=== PATIENT | female | born 2000 | race Caucasian/White ===

== ENCOUNTER 2020-05-19 10:37 | Emergency (ER) | payer OTHER, SELFPAY ==
[2020-05-19 10:57] VITALS: BP 130/73; PULSE 76; RESP 18; TEMP 37.1; O2SAT 99; BMI 28.3
--- NOTE | 2020-05-19 10:58 | ED.URI ---
HPI - URI/Sore Throat General Chief Complaint: General Medical Stated Complaint: covid symptoms Time Seen by Provider: 05/19/20 10:58 Source: patient and army helicopter pilot Mode of arrival: ambulatory Limitations: no limitations History of Present Illness MD elicited complaint: nasal congestion and sinus pain Onset (ago): day(s) (2) Consistency: constant Description of mucous: yellow Able to tolerate fluids by mouth: Yes Exacerbating factors: leaning forward Relieving factors: nothing Associated symptoms: chills, myalgias, headache and nasal congestion Treatments prior to arrival: none Related Data Previous Rx's Medication Instructions Recorded azithromycin See Rx Instructions .ROUTE 05/19/20 .COMPLEX #6 tab Allergies Allergy/AdvReac Type Severity Reaction Status Date / Time No Known Allergies Allergy Verified 05/19/20 10:56 [No Known Allergies*] Review of Systems Review of Systems: Constitutional : no Fever, positive Chills, positive fatigue, positive Malaise ENT/Mouth : no sore throat, positive runny nose and sinus pain Eyes: No Discharge Cardiovascular : No Chest Pain, No SOB Respiratory : No Cough, No Sputum Gastrointestinal : No Nausea, No Vomiting, No Diarrhea Genitourinary : No Dysuria, No Urinary Frequency Musculoskeletal : positive Myalgia Skin : No rash Neuro : positive mild Headache PMFSH Past Medical History Medical History No known health problems Social History Social History (Updated 05/19/20 @ 11:21 by Nora Champion DO) Smoking Status: Never smoker Advance Directives: No Advance Directives Information Provided: No Physical Exam Vital Signs: Vital Signs: Vital Signs Temp Pulse Resp BP Pulse Ox 05/19/20 10:57 98.8 F 76 18 130/73 99 Body Mass Index 28.3 Appearance: Alert. Oriented X3. No acute distress. Eyes: Pupils equal, round and reactive to light. ENT: Pharynx normal. ttp bilateral sinuses Neck: Normal inspection. Neck supple. CVS: Normal heart rate and rhythm. Pulses normal. Respiratory: No respiratory distress. Breath sounds normal. Abdomen: Soft and nontender. Skin: Skin warm and dry. Normal skin color. Normal skin turgor. Extremities: No lower extremity edema. No calf ttp Neuro: Oriented X 3. No motor deficit. No sensory deficit. MDM - URI/Sore Throat MDM Narrative Medical decision making narrative: headache nasal congestion, clear lungs, no fevers, not hypoxic - test for COVId and treat for sinusitis Discharge Plan Discharge Clinical Impression: Viral infection Sinusitis Qualifiers: Sinusitis location: frontal Chronicity: acute Recurrence: non-recurrent Qualified Code(s): J01.10 - Acute frontal sinusitis, unspecified Patient Disposition: Home, Self-Care Instructions: Sinusitis (ED), COVID-19 (Coronavirus Disease 2019) (ED) Additional Instructions: you were tested for COVID we will call you with results in 2 to 4 days, wear a mask, socially distance Prescriptions: New azithromycin 250 mg tablet See Rx Instructions .ROUTE .COMPLEX Qty: 6 RF: 0 Stand Alone Forms: Work/School Release
--- NOTE | 2020-05-19 11:17 | PC.NURSE ---
dr taylor at chairside for exam with senior product designer present
== END 2020-05-19 11:30 | disposition home or self-care (01) ==
PROVIDERS: Emergency Provider Emergency Medicine
DX: B34.9 Viral infection, unspecified (principal); Z20.828 Contact with and (suspected) exposure to other viral communicable diseases; J01.10 Acute frontal sinusitis, unspecified
CPT/HCPCS: 87635; 99283

== ENCOUNTER 2020-10-07 07:46 | Emergency (ER) | payer MEDICAID, SELFPAY ==
[2020-10-07 08:58] LABS: Influenza A PCR NEGATIVE (Negative); Influenza B PCR NEGATIVE (Negative); Resp Syncy Virus RNA Qual PCR NEGATIVE (Negative); SARS COV2 PCR INHOUSE NEGATIVE (Negative)
[2020-10-07 09:17] VITALS: BP 112/65; PULSE 73; RESP 16; TEMP 36.8; O2SAT 100; BMI 25.4
--- NOTE | 2020-10-07 10:01 | ED_ITS ---
HPI - General Adult General Chief complaint: General Medical Stated complaint: covid symptoms, 5 months Time Seen by Provider: 10/07/20 09:38 Source: patient Mode of arrival: ambulatory Limitations: no limitations History of Present Illness HPI narrative: 18-year-old female G1, P0, LMP 05/03/2020, EDC 02/07/2021, 22 weeks, 3 days who presents emergency department for evaluation of headache, sore throat, body and fatigue. The patient states that she developed symptoms last night . She states she had a gradual onset of bilateral temporal headache which she describes a pressure-like pain which is constant moderate intensity. She also states that she feels like her nose and throat are congested she does have a sore throat which is czrs-cy-tlxgdsdf in intensity and worse with swallowing. She states that her body aches and she feels fatigued. She denied chest pain, shortness of breath, cough, diarrhea, loss of sense of taste or smell. She has not noticed any swelling in her lower extremities. She denies any vaginal discharge. The patient states that she can feel movement and it appears to be normal. The patient lives with her who was well, she does not know of any COVID-19 exposures. Related Data Previous Rx's Medication Instructions Recorded azithromycin See Rx Instructions .ROUTE 05/19/20 .COMPLEX #6 tab Allergies Allergy/AdvReac Type Severity Reaction Status Date / Time No Known Allergies Allergy Verified 05/19/20 10:56 [No Known Allergies*] Review of Systems Review of Systems: Yes all other systems are reviewed and are negative PMFSH Past Medical History PMFSH Narrative: The patient denies tobacco, alcohol and drug use. She lives at home with her . Medical History No known health problems Social History Social History Smoking Status: Never smoker Advance Directives: Yes Advance Directives Information Provided: Yes Advance Directives on File: No Physical Exam Vital Signs: Vital Signs: Last Vital Signs Temp 98.2 F 10/07/20 09:17 Pulse 73 10/07/20 09:17 Resp 16 10/07/20 09:17 BP 112/65 10/07/20 09:17 Pulse Ox 100 10/07/20 09:17 Body Mass Index 25.4 Const: General: cooperative and healthy appearing Orientation/consciousness: oriented to person and oriented to place Limitations: no limitations HENMT: Head: Yes normal to inspection, Yes normocephalic and Yes atraumatic Ears: external ears normal General nose exam: Normal external nose present Face and sinus: Yes normal facial exam Mouth: Normal oral and palatal mucosa present Throat: Yes other (Slight posterior erythema, no exudates, uvula midline, tonsils normal) Eyes: Periorbital: periorbital findings normal Eyelids: Yes eyelids normal Conjunctivae: conjunctivae normal Sclerae: sclerae normal Corneas: corneas normal Pupils: Equal, round and reactive pupils present Direct Ophthalmoscopy: normal light reflex Neck: Neck: Yes full ROM, Yes no lymphadenopathy, Yes no meningeal signs, Yes trachea midline and Yes supple Chest: Chest palpation & inspection: normal inspection of the chest and normal palpation of entire chest wall Resp: Effort & Inspection: normal respiratory effort and able to speak in complete sentences Auscultation: clear to auscultation bilaterally Cardio: Rate: regular rate Rhythm: regular rhythm Heart sounds: S1 normal heart sound present, S2 normal heart sound present and no murmurs GI: Inspection: Yes normal to inspection Palpation (GI): Soft to palpation, nontender, no guarding, not rigid, No hepatosplenomegaly present and Other GI palpation findings present (Gravid uterus, nontender) : General: Yes no CVA tenderness Back/Spine/Pelvis: Back: no CVA tenderness Cervical Spine: normal cervical lordosis Thoracic/Lumbar Spine: thoracic and lumbar spine normal to inspe ction Skin: Lesions: no lesions Rashes: no rashes Wounds: no wounds Neuro: General: oriented to person, oriented to place and no meningeal signs Cranial nerves: Yes CN's II-XII intact bilaterally and Yes Equal, round and reactive pupils present Cognition (Neuro): normal cognition Motor exam (neuro): 5/5 motor strength present throughout Extrem: General: Yes normal to inspection, Yes full ROM and Yes other (No edema or swelling) Psych: Appearance: well kempt Mental Status: mental status grossly normal Speech and movement: Normal speech and movement present Affect: normal affect Attitude: cooperative Thought process: Normal thought process present Thought content: Normal thought content present Course Course Course Narrative: 20-year-old female G1, P0 , 22 weeks , who presents with symptom consistent with a viral illness. Physical examination did reveal some posterior erythema but no other findings. The patient had no abdominal tenderness and no edema noted. The patient most likely has a viral illness. I do not think that she has any evidence for preeclampsia or early labor. The patient's COVID-19, influenza and RSV tests were all negative. This is reassuring, but I did discuss false negatives with the patient. Rapid strep will be tested and I will contact the patient with this finding. Patient was treated with Tylenol 975 mg orally. She was advised to take Tylenol and to return to the emergency department if her symptoms get worse or if she took the new symptoms that were concerning to her. heart tones were 172 which is acceptable. 1205: Rapid strep test was negative, cultures pending. I did discuss this result with the patient over the phone- . Medical Decision Making Lab Data Labs: Lab Results 10/07/20 Range/Units 08:12 Coronavirus (PCR) NEGATIVE (Negative) Influenza Type A (PCR) NEGATIVE (Negative) Influenza Type B (PCR) NEGATIVE (Negative) RSV RNA Qual (PCR) NEGATIVE (Negative) Discharge Plan Discharge Clinical Impression: Pharyngitis with viral syndrome Patient Disposition: Home, Self-Care Instructions: Viral Syndrome (ED) Additional Instructions: Your COVID-19, influenza A and B, and RSV tests were negative. Your rapid strep test is pending and I will contact you this afternoon with the result. At this time, I believe that you have a virus that is causing your symptom , there are many viruses that can make us feel ill. If your symptoms get worse over the next 4-7 days then you should consider retesting you for COVID-19 since sometimes early on and illness the COVID-19 test can be falsely negative. Take Tylenol (acetaminophen) 500 mg pills, 2 pills every 4 to 6 hours as needed for pain. Follow-up with your doctor in 2 days. Please return to the emergency department if your symptoms get worse or if you develop any symptoms that are concerning to you. Prescriptions: No Action azithromycin 250 mg tablet See Rx Instructions .ROUTE .COMPLEX Qty: 6 RF: 0 Interventions: ED Discharge Assessment Last Done: 10/07/20 10:21 Discharge Date/Time: 10/07/20 10:29
[2020-10-07] MEDS: Acetaminophen 325 MG TABLET 975 MG PO (10:11)
--- NOTE | 2020-10-07 10:20 | PC.NURSE ---
FHR: 172 via ultrasound
== END 2020-10-07 10:29 | disposition home or self-care (01) ==
PROVIDERS: Emergency Provider Emergency Medicine Emergency Medical Services
DX: O98.512 Other viral diseases complicating pregnancy, second trimester (principal); Z3A.22 22 weeks gestation of pregnancy; J02.9 Acute pharyngitis, unspecified; Z20.822 Contact with and (suspected) exposure to COVID-19
CPT/HCPCS: 0241U; 36415; 87071; 87880; 99283

== ENCOUNTER 2021-05-05 07:34 | Emergency (ER) | payer MEDICAID, SELFPAY ==
[2021-05-05 07:47] VITALS: BP 127/64; PULSE 88; RESP 18; TEMP 36.9; O2SAT 99; BMI 26.2
--- NOTE | 2021-05-05 08:37 | ED.GENADULT ---
HPI - General Adult General Chief complaint: General Medical Stated complaint: flu like symptoms Time Seen by Provider: 05/05/21 08:37 Source: patient Mode of arrival: ambulatory Limitations: no limitations History of Present Illness HPI narrative: 21-year-old female with no medical history presents to the ER complaining of nasal congestion and diffuse body aches. Her symptoms just started last night. She has no known sick contacts. She is not vaccinated against COVID-19. She has a 2-month-old baby at home and is worried this might be COVID. She has no shortness of breath or chest pain. Her biggest complaint is nasal congestion with postnasal drip. This is causing her throat to be scratchy. She has no fever or chills. MD complaint: Nasal congestion and body aches. Onset (ago): hour(s) (12) Location: head, face and mouth Radiation: non-radiation Severity: moderate Severity scale (1-10): 5 Quality: aching Pain Consistency: intermittent Relieving factors: none Exacerbating factors: none Associated symptoms: headaches and other (Body aches) Treatments prior to arrival: none Related Data Previous Rx's Medication Instructions Recorded azithromycin 250 mg tablet See Rx Instructions .ROUTE 05/19/20 .COMPLEX #6 tab fluticasone propionate 50 1 spray INTRANASAL BID #16 g 05/05/21 mcg/actuation nasal spray,suspension (Flonase Allergy Relief) Allergies Allergy/AdvReac Type Severity Reaction Status Date / Time No Known Allergies Allergy Verified 05/19/20 10:56 [No Known Allergies*] Review of Systems Review of Systems: Constitutional: No Fever, No Chills ENT/Mouth: + sore throat, + Rhinorrhea, No Swallowing Difficulty Cardiovascular: No Chest Pain, No SOB Respiratory: No Cough, No Sputum Gastrointestinal: No Nausea, No Vomiting, No Diarrhea, No abdominal Pain Musculoskeletal: No joint pain, + Myalgias Skin: No Skin Lesions, No rash Neuro: No Weakness, No Numbness, No Dizziness, + Headache Psych: + Anxiety/Panic Heme/Lymph: No Lymphadenopathy PMFSH Past Medical History Medical History No known health problems Social History Social History Advance Directives: No Physical Exam Vital Signs: Vital Signs: Last Vital Signs Temp 98.4 F 05/05/21 07:47 Pulse 88 05/05/21 07:47 Resp 18 05/05/21 07:47 BP 127/64 05/05/21 07:47 Pulse Ox 99 05/05/21 07:47 Body Mass Index 26.2 Appearance: Alert. Oriented X3. No acute distress. Eyes: Pupils equal, round and reactive to light. ENT: Pharynx normal. No tonsillar exudte or swelling, uvula midline. clear nasal discharge Neck: Normal inspection. Neck supple. CVS: Normal heart rate and rhythm. Pulses normal. Respiratory: No respiratory distress. Breath sounds normal. Skin: Skin warm and dry. Normal skin color. Normal skin turgor. No rashes. Extremities: No lower extremity edema. Neuro: Oriented X 3. Nonfocal Course Course Course Narrative: 21-year-old female presents with 12 hours of nasal congestion and body aches. She is nontoxic-appearing her vital signs are normal. She appears well. She is negative for COVID-19 and strep throat today. She was advised that this may be a false negative in the setting of her symptoms just starting 12 hours ago. She is encouraged to get retested in the next day or 2 if her symptoms persist. She is stable for discharge with symptomatic care. Medical Decision Making Lab Data Labs: Lab Results 05/05/21 05/05/21 Range/Units 08:16 08:16 COVID-19 (ERWIN) Negative (Negative) COVID-19 Clin Com See Note S. pyogenes GrpA DONN Negative (Negative) Discharge Plan Discharge Clinical Impression: Acute viral syndrome Patient Disposition: Home, Self-Care Instructions: Viral Syndrome (ED) Additional Instructions: Your negative for COVID-19. Were negative for strep throat. Her symptoms are most likely due to a viral illness. Given that your symptoms have only started last night, it is possible this is a false negative COVID test. Recommend getting retested in the next day or 2. Do not go on pelvic where feeling sick. Take uhaz-vnj-ewzajew cold and flu medications as needed for symptoms. Recommend Sudafed for nasal congestion. You will have to go to the pharmacist and ask for this medication. Use the prescribed nasal steroid to help with her congestion. Rest and stay hydrated. Follow-up with your doctor. If you develop new or worsening symptoms call 911 or come back to the ER for further evaluation. Prescriptions: New fluticasone propionate [Flonase Allergy Relief] 50 mcg/actuation spray,suspension 1 spray intranasal BID Qty: 16 RF: 0 No Action azithromycin 250 mg tablet See Rx Instructions .ROUTE .COMPLEX Qty: 6 RF: 0 Stand Alone Forms: Work/School Release
[2021-05-05 08:39] LABS: IDNOW Serial# 08D9AD1C; Strep A Nucleic Acid Negative (Negative)
[2021-05-05 08:44] LABS: COVID-19 Test Negative (Negative); IDNOW Serial# 9DD0AD1C
== END 2021-05-05 09:17 | disposition home or self-care (01) ==
PROVIDERS: Emergency Provider Emergency Medicine
DX: B34.9 Viral infection, unspecified (principal); Z20.822 Contact with and (suspected) exposure to COVID-19
CPT/HCPCS: 36415; 87635; 87651; 99283

== ENCOUNTER 2024-10-31 08:49 | Emergency (ER) | payer MEDICAID, SELFPAY ==
--- NOTE | ~2024-10-31 | XR_ITS ---
EXAMINATION: XR CHEST 1 VIEW HISTORY: cough COMPARISON: There are no prior studies for comparison. FINDINGS: A single PA view of the chest is submitted. The lungs are expanded and clear. There is no pleural effusion, pneumothorax, or pulmonary vascular congestion. The heart is normal in size. The bones are intact. XR/XR chest 1V IMPRESSION: Normal examination of the chest. Electronically signed by: Tuan Duran MD 10/31/2024 09:16 AM EDT
[2024-10-31 08:58] VITALS: BP 125/84; PULSE 77; RESP 20; TEMP 36.6; O2SAT 99; BMI 28.3
[2024-10-31 09:18] LABS: IDNOW Serial# 55D5AD1C; Strep A Nucleic Acid Negative (Negative)
--- OUTSIDE RECORDS SUMMARY | 2024-10-31 09:29 | XMS_ITS | Clinical Summary ---
Author Organization [facility] ity Address [address] [place] [address] Care Team Providers Care Drawing Frame Tender Name Role Phone Unavailable Primary Care Provider Unavailabl e Social History Tobacco Use Types Packs/Day Years Used Date Smoking Tobacco: Never Assessed Comments Unknown Sex and Gender Information Value Date Recorded Sex Assigned at Not on file Legal Sex Female 11:02 AM EDT Gender Identity Not on file Sexual Orientation Not on file Plan of Treatment Health Maintenance Due Date Last Done Comments HPV Vaccines (1 - 3-dose series) 2013 DTaP,Tdap,and Td Vaccines (1 - Tdap) 2017 Hepatitis B Vaccines (1 of 3 - 19+ 3-dose series) 2017 Cervical Cancer Screening: P ap Smear 2019 Depression Screening 02/20/2024 HIV Screening 02/20/2024 Hepatitis C Screening 02/20/2024 Social Influencers of Health Screening 02/20/2024 COVID-19 Vaccine (2023-2 5 season) 2024 Influenza Vaccine (#1) 2024 HIB Vaccines Aged Out No longer eligi ble based on patient's age to complete this topic Hepatitis A Vaccines Aged Out No long er eligible based on patient's age to complete this topic IPV Vaccines Aged Out No longer eligi ble based on patient's age to complete this topic MMR Vaccines Aged Out No longer eligi ble based on patient's age to complete this topic Meningococcal ACWY Vaccine Aged Out N o longer eligible based on patient's age to complete this topic Meningococcal B Vacine Aged Out No lo nger eligible based on patient's age to complete this topic Pneumococcal Vaccine: Pediat rics (0 to 5 Years) and At-Risk Patients (6 to 64 Years) Aged Out No longer eligible b ased on patient's age to complete this topic RSV Immunization Patients Un gus 20 months Aged Out No longer eligible b ased on patient's age to complete this topic Varicella Vaccines Aged Out No longer eligible based on patient's age to complete this topic
--- OUTSIDE RECORDS SUMMARY | 2024-10-31 09:29 | XMS_ITS | Encounter Summary ---
Author Organization [employer] [facility] Address [address] [place] [address] [address] [place] [address] Care Team Providers Care Rough Rounder Name Role Phone Name, Raimundo MALDONADO Primary Care Provider [phone] Encounter Details Date Type Department Care Team (Late st Contact Info) Description 12/15/2022 Abstract [facility] [address] [place], [place] [phone] Name, MD Raimundo [address] [place] [address] Social History Tobacco Use Types Packs/Day Years Used Date Smoking Tobacco: Never Assessed Comments Unknown Sex and Gender Information Value Date Recorded Sex Assigned at Female 05/30/2022 10:35 AM EDT Legal Sex Female 10:35 AM EDT Gender Identity Female 05/30/2022 10:35 AM EDT Sexual Orientation Straight 05/30/2022 10 :35 AM EDT documented as of this encounter Plan of Treatment Not on file documented as of this encounter Procedures Procedure Name Priority Date/Time Associated Diagnosis Comments HM PAP/HPV Routine 06/14/2021 12:00 AM EST documented in this encounter Results * Hm Pap Smear (06/14/2021 12:00 AM EST) us Historical Provider HEALTH MAINTENANCE Final Result documented in this encounter Visit Diagnoses Not on filedocumented in this encounter Care Teams Rough Rounder Relationship Specialty Start Date End Date Name, MD Raimundo [address] [place] [address] [phone] PCP - General Family Medicine 02/15/19 08/03/23 documented as of this encounter
--- OUTSIDE RECORDS SUMMARY | 2024-10-31 09:29 | XMS_ITS | Clinical Summary ---
Author Organization [employer] [facility] Address [address] [facility] [address] [place] [address] Care Team Providers Care Food And Beverage Associate Name Role Phone Unavailable Primary Care Provider Unavailabl e Encounters Date Type Department Care Team Description 10/31/2024 Orders Only GENERIC EXTERNAL DATA DEPARTMENT Provider, Generic External Data 10/11/2024 Population Health Risk Score [facility] ([facility]) Department [address] [facility] [address] [place] [address] Provider, Population Health Generic from Last 3 Months Social History Tobacco Use Types Packs/Day Years Used Date Smoking Tobacco: Never Assessed Comments Unknown Sex and Gender Information Value Date Recorded Sex Assigned at Female 05/30/2022 10:35 AM EDT Legal Sex Female 10:35 AM EDT Gender Identity Female 05/30/2022 10:35 AM EDT Sexual Orientation Straight 05/30/2022 10 :35 AM EDT Plan of Treatment Health Maintenance Due Date Last Done Comments Depression Screening 1998 HIV Screening 1998 Alcohol/Substance Use Screening 2010 Tobacco Screening 2010 Family Planning (PISQ) 2013 HPV Vaccines (1 - 3-dose series) 2013 Hepatitis C Screening 02/16/2016 DTaP/Tdap/Td Vaccines (1 - Tdap) 2017 Hepatitis B Vaccines (1 of 3 - + 3-dose series) 2017 COVID-19 Vaccine (3 - 2023-2 5 season) 2024 06/14/2021, 05/21/2021 Influenza Vaccine (#1) 2024 Pap Smear 06/14/2024 06/14/2021 Zoster Vaccines (1 of 2) 02/16/2048 RSV Patients and Patients Aged 60 years or older (1 - 1-dose 75+ series) 2073 HIB Vaccines Aged Out No longer eligi ble based on patient's age to complete this topic Hepatitis A Vaccines Aged Out No long er eligible based on patient's age to complete this topic IPV Vaccines Aged Out No longer eligi ble based on patient's age to complete this topic Meningococcal Vaccine Aged Out No nguyen chuckie eligible based on patient's age to complete this topic Pneumococcal Vaccine: Pediatrics (0 to 5 Years) and At-Risk Patients (6 to 49) Years) Aged Out No longer eligible b ased on patient's age to complete this topic RSV under 20 months Aged Out No longe r eligible based on patient's age to complete this topic Rotavirus Vaccines Aged Out No longer eligible based on patient's age to complete this topic Procedures Procedure Name Priority Date/Time Associated Diagnosis Comments STREP A NUCLEIC ACID Routine 10/31/2024 9:03 AM EDT XR CHEST 1 VIEW Routine 10/31/2024 9:02 AM EDT HM PAP/HPV Routine 06/14/2021 12:00 AM EST from Last 3 Months or Most Recently Relevant to Health Maintenance Results * Strep A Nucleic Acid (10/31/2024 9:03 AM EDT) IDNOW SERIAL# [id number] [facility] Strep A Nucleic Acid Negative Negative [facility] Comment:All test results mus t be correlated with clinical findings.This test has not been evaluated for monitoring treatment ofinfection.Additional follow-up testing using the culture method isrequired if the result is negative and clinical symptomspersist, or in the event of an acute rheumatic feveroutbreak. 10/31/2024 9:03 AM EDT 10/31/2024 9:05 AM EDT us Generic External Data Provider LAB MICROBIOLOGY - GENERAL ORDERABLES Final Result [facility] [address] [place] [address] [phone] * XR Chest 1 View (10/31/2024 9:02 AM EDT) Anatomical Region Laterality Modality Chest Radiographic Chanelle ging 10/31/2024 9:02 AM EDT Narrative 10/31/2024 9:24 AM EDT ? [facility] ?[address] ?[place] [address] ?XRay Report ? Signed ? Patient: Stephen Colon,Shanika ?MR#: [id number] ?? [id number] ? : 2000 ?Acct:[id number] ? Age/Sex: 24 / F ?ADM Date: 10/31/24 ? Loc: HO.ED ? Attending Dr: ? Ordering Physician: Generic ED Physician ?? Date of Service: 10/31/24 ?? Procedure(s): XR chest 1V ?? Accession Number(s): [id number] ? cc: Generic ED Physician; [facility] ? EXAMINATION: ??XR CHEST 1 VIEW ? HISTORY: cough ? COMPARISON: There are no prior studies for comparison. ? FINDINGS: ??A single PA view of the chest is submitted. The lungs are ?? expanded and clear. ??There is no pleural effusion, pneumothorax, or ?? pulmonary vascular congestion. ??The heart is normal in size. ??The bones ?? are intact. ? XR/XR chest 1V ?? IMPRESSION: ?? Normal examination of the chest. ? Electronically signed by: ??Tuan Duran MD ??10/31/2024 09:16 AM EDT ?? RP ? Dictated By: ?Tuan Duran MD ? Signed By: ?<Electronically signed by Tuan Duran MD in OV> ?10/31/24 0916 ? DD/ 0902 ? TD/TT: 10/31/24 0910 ? Forming Machine Adjuster: ? Procedure Note Prudencio Menezes - 10/31/[address] [address] XRay Report Signed Patient: Tari Cheng#: [id number] : 2000Acct:[id number] Age/Sex: 24 / FADM Date: 10/31/24 Loc: .ED Attending Dr: Ordering Physician: Generic ED Physician Date of Service: 10/31/24 Procedure(s): XR chest 1V Accession Number(s): [id number] cc: [facility] ED Physician; [facility] EXAMINATION: XR CHEST 1 VIEW HISTORY: cough COMPARISON: There are no prior studies for comparison. FINDINGS: A single PA view of the chest is submitted. The lungs are expanded and clear. There is no pleural effusion, pneumothorax, or pulmonary vascular congestion. The heart is normal in size. The bones are intact. XR/XR chest 1V IMPRESSION: Normal examination of the chest. Electronically signed by: Tuan Duran MD 10/31/2024 09:16 AM EDT Dictated By: Tuan Duran MD Signed By: <Electronically signed by Tuan Duran MD in OV> 10/31/24 0916 DD/ 0902 TD/TT: 10/31/24 0910 Forming Machine Adjuster: [facility] External Provider IMG XR PROCEDURES Edited Result - Final * Hm Pap Smear (06/14/2021 12:00 AM EST) Historical Provider HEALTH MAINTENANCE Final Result from Last 3 Months or Most Recently Relevant to Health Maintenance
[2024-10-31 09:45] LABS: Influenza A PCR NEGATIVE (Negative); Influenza B PCR NEGATIVE (Negative); Resp Syncy Virus RNA Qual PCR NEGATIVE (Negative); SARS COV2 PCR INHOUSE NEGATIVE (Negative)
--- NOTE | 2024-10-31 09:49 | ED_ITS ---
HPI - General Adult General Chief complaint: Upper Respiratory Symptoms Stated complaint: fever headache Time Seen by Provider: 10/31/24 09:49 Source: patient, RN notes reviewed and old records reviewed Mode of arrival: ambulatory Limitations: no limitations History of Present Illness ED Provider: Drew [facility] narrative: Patient is a 24-year-old female presenting to the emergency department with complaint of nasal congestion, cough, sore throat, headache for 3 days. Denies fevers. Denies chest pain or palpitations. Reports multiple people at work have been sick with similar symptoms. complaint: sore throat, cough Onset (ago): day(s) Related Data Previous Rx's ?Medication ?Instructions ?Recorded azithromycin 250 mg tablet See Rx Instructions PO .COMPLEX #6 05/19/20 tabs fluticasone propionate 50 1 spray intranasal BID #16 grams 05/05/21 mcg/actuation nasal spray,suspension (Flonase Allergy Relief) Allergies Allergy/AdvReac Type Severity Reaction Status Date / Time No Known Allergies Allergy Verified 10/31/24 09:00 [No Known Allergies*] Review of Systems Review of Systems: As per HPI Yes all other systems are reviewed and are negative Constitutional: Constitutional: Reports as per HPI [facility] Past Medical History Medical History No known health problems Social History Social History Advance Directives: No Advance Directives Information Provided: No Do you have a plan to hurt others: No Plan Physical Exam ED Vital Signs: Vital Signs - 24 hr 10/31/24 08:58 10/31/24 10:02 Temperature 97.9 F 98.2 F Pulse Rate 77 83 Respiratory Rate 20 16 Blood Pressure 125/84 111/69 Pulse Oximetry 99 97 Oxygen Delivery Method Room Air Room Air BMI result Body Mass Index 28.3 Vital signs have been reviewed and appear to be correct. Blood pressure normal. Heart rate normal. Respiratory rate normal. Temperature normal. Oxygen saturation normal. Const General: cooperative, healthy appearing and no acute distress Orientation/consciousness: oriented to person, oriented to place, oriented to time and patient oriented x3 Limitations: no limitations HENMT Head: Yes normocephalic and Yes atraumatic Ears: external ears normal, TM's normal bilaterally, EAC's normal, mastoids normal bilaterally and no periauricular adenopathy General nose exam: Normal external nose present and Normal nasal mucous membranes and turbinates present Face and sinus: Yes face symmetric Mouth: oropharynx normal, moist mucous membranes and no trismus Throat: Yes posterior oropharynx normal, Yes tonsils normal, Yes uvula midline and No uvular edema Eyes Pupils: Equal, round and reactive pupils present Neck Neck: Yes normal visual inspection, Yes no lymphadenopathy and Yes supple Resp Effort & Inspection: normal respiratory effort and able to speak in complete sentences Auscultation: clear to auscultation bilaterally Cardio Rate: regular rate Rhythm: regular rhythm Heart sounds: S1 normal heart sound present and S2 normal heart sound present GI Palpation (GI): Soft to palpation and nontender Auscultation: normoactive bowel sounds General: Yes no CVA tenderness Back/Spine/Pelvis Back: no CVA tenderness Skin General skin exam: elasticity normal and turgor normal Neuro General: oriented to person, oriented to place, oriented to time, patient oriented x3, moves all extremities, no focal motor deficits and CN's II-XI intact bilaterally Cranial nerves: Yes Equal, round and reactive pupils present Cognition (Neuro): normal cognition Extrem General: Yes full ROM, Yes no pedal edema and Yes no calf tenderness Psych Mental Status: mental status grossly normal Affect: normal affect Thought process: Normal thought process present Medical Decision Making Medical Decision Making MDM Narrative: Patient is a 24-year-old female presenting to the emergency department with complaint of nasal congestion, cough, sore throat, headache for 3 days. On exam patient is awake, A+Ox3, VS WNL, afebrile, normal neurological exam without focal deficits, physical exam findings as above. Given reported symptoms and physical exam findings, initial differential includes but is not limited to strep pharyngitis, viral illness, covid, flu, rsv, bronchitis, pneumonia. Strep and viral swabs negative. X-ray chest notable for no evidence of pneumonia. My interpretation is in agreement with the radiologist's interpretation. Results discussed with patient and all questions answered. Discussed with patient that symptoms likely due to viral illness which will resolve on its own with time and rest. Advised patient to ensure adequate fluid intake, can use Tylenol and ibuprofen as needed, also recommended nasal saline spray. Follow up with primary care provider as needed. Return precautions discussed. Patient verbalized understanding of and agreement with plan. Differential Diagnosis Differential Diagnoses: The differential diagnosis associated with the pr esentation includes As per [facility] Lab Data [facility] Lab Attestation statement: I reviewed the patient's lab results. as per [facility] Labs: Lab Results 10/31/24 Range/Units 09:03 Influenza Type A (PCR) NEGATIVE (Negative) Influenza Type B (PCR) NEGATIVE (Negative) RSV RNA Qual (PCR) NEGATIVE (Negative) SARS-CoV-2 RNA (RT-PCR) NEGATIVE (Negative) S. pyogenes GrpA DONN Negative (Negative) Independent Interpretation I performed an independent interpretation of an: Plain X-Ray Interpretation: no evidence of pneumonia on chest x-ray Radiology Impression Discussion of test interpretation with radiology: I have reviewed the radiologist's reading. Radiologist Impression: XR/XR chest 1V IMPRESSION: Normal examination of the chest. External Record Review External record reviewed: Inpatient record, Office record and Outpatient record Discharge Plan Discharge Clinical Impression: Viral infection Patient Disposition: Home, Self-Care Instructions: Upper Respiratory Infection (DC), Viral Syndrome (ED) Additional Instructions: You were evaluated in the emergency department today for sore throat and cough. Your Covid, flu, RSV, and strep tests were all negative. Your x-ray did not show evidence of pneumonia. Your symptoms are likely related to a viral illness which will resolve on its own with time and rest. You should ensure adequate fluid intake, and can use Tylenol 650 mg or ibuprofen 600 mg every 6 hours as needed for fever or discomfort. We also recommend using over the counter nasal saline spray to thin your mucous. Please follow-up with your primary care provider this week. Return to the emergency department if you develop chest pain, worsening shortness of breath, difficulty swallowing, fever 100.4? F or greater or any other concerning symptoms. Prescriptions: No Action azithromycin 250 mg tablet See Rx Instructions .ROUTE .COMPLEX Qty: 6 0RF Rx Instructions: take 500 mg today (day 1), then 250 mg for 4 days (days 2-5) fluticasone propionate [Flonase Allergy Relief] 50 mcg/actuation spray,suspension 1 spray intranasal BID Qty: 16 0RF Rx Instructions: administer into each nostril Stand Alone Forms: Work/School Release Interventions: ED Discharge Assessment Last Done: 10/31/24 10:02 Print Language: Macedonian
[2024-10-31 10:02] VITALS: BP 111/69; PULSE 83; RESP 16; TEMP 36.8; O2SAT 97
== END 2024-10-31 10:03 | disposition home or self-care (01) ==
PROVIDERS: Emergency Provider Emergency Medicine
DX: B34.9 Viral infection, unspecified (principal); J02.9 Acute pharyngitis, unspecified; R05.9 Cough, unspecified; R50.9 Fever, unspecified; R51.9 Headache, unspecified; Z03.818 Encounter for observation for suspected exposure to other biological agents ruled out
CPT/HCPCS: 0241U; 71045; 87651; 99283; 99284

== ENCOUNTER → 2024-10-31 09:02 | Outpatient (BNV) | payer MEDICAID, SELFPAY | PROVIDERS: Emergency Provider Emergency Medicine; Visit Provider Radiology Diagnostic Radiology | DX: R05.9 Cough, unspecified (principal) | CPT/HCPCS: 71045 ==